=== PATIENT | male | born 1965 | race Caucasian/White ===

== ENCOUNTER 2020-08-02 15:44 | Emergency (ER) | payer OTHER ==
[~2020-08-02] VITALS: Ht 180.3 cm; Wt 83.9 kg
[2020-08-02] MEDS ORDERED: HYDROMORPHONE 1 MG/1 ML DISP.SYRIN IM ONE (16:15)
[2020-08-02] MEDS ORDERED: ONDANSETRON 4 MG/2 ML VIAL IM ONE (16:15)
--- NOTE | 2020-08-02 16:15 | NUR ---
Patient discharged to home in stable condition. Written and verbal after care instructions given to patient. Patient verbalizes understanding & compliance of instructions. Stressed follow up with his primary doctor or return to ER for worsening s/s. Patient said that he is not driving home today from our ER department.
[2020-08-02] MEDS ORDERED: HYDROMORPHONE 2 MG/1 ML DISP.SYRIN ONE (16:17)
[2020-08-02] MEDS ORDERED: ONDANSETRON 4 MG/2 ML VIAL ONE (16:17)
== END 2020-08-02 16:20 | disposition home or self-care (01) ==
LOC: ER 15:47
DX: M54.41 Lumbago with sciatica, right side (principal); J45.909 Unspecified asthma, uncomplicated
CPT/HCPCS: 96372 ×2; 99284; J1170; J2405; A4663